=== PATIENT | female | born 1945 | race Caucasian/White ===

== ENCOUNTER 2017-11-02 09:04 | Emergency (ER) | payer OTHER, SELFPAY ==
[~2017-11-02] VITALS: Ht 162.6 cm; Wt 65.8 kg
[~2017-11-02 09:04] MED LIST: ADVANCED CALCI1 EACH; ASCO500; ASCO500 PO; ASPI81CH PO; ATOR80 PO; BIOTENE1000 ML PO; BIOTIN1 MG PO; Biotin1 MG; CALCIUM PO; CEPH500 PO; CHOL10002; CYAN500 PO; ENOX60I SC; Gas Relief80 MG; Glycotrol Caps1 EACH PO; HYDACE5 PO; HYDACE7.5 PO; LEVFLO500 PO; LOSA25; LOSA25 PO; METO25ER PO; MULVITMIND PO; MULVITMINF PO; OXYACE5T PO; PROC5 PO; PROZAC PO; SILSUL1TC TOP; SPIR25 PO; SUCR1 PO; TICA90TA; VIT D3 PO; WARF5 PO; [UNRECOGNIZED DRUG - OTHER] PO
[2017-11-02] MEDS ORDERED: Norco 5-325 Ta1 EACH PO (10:03)
== END 2017-11-02 10:16 | disposition home or self-care (01) ==
LOC: ER 09:04
DX: S83.92XA Sprain of unspecified site of left knee, initial encounter (principal); Z88.8 Allergy status to other drugs, medicaments and biological substances; Z79.899 Other long term (current) drug therapy; Z79.82 Long term (current) use of aspirin; Z87.891 Personal history of nicotine dependence; W19.XXXA Unspecified fall, initial encounter
CPT/HCPCS: 73564; 96372; 99283; J1885

== ENCOUNTER 2017-11-20 08:37 | Day surgery (SDC) | END 2017-11-20 22:43 | disposition home or self-care (01) ==

== ENCOUNTER 2018-03-09 10:09 | Emergency (ER) | payer OTHER ==
[~2018-03-09] VITALS: Ht 165.1 cm; Wt 62.6 kg
[~2018-03-09 10:09] MED LIST changes: +Norco 5-325 Ta1 EACH PO
[2018-03-09] MEDS ORDERED: CLOP75 PO (10:43)
[2018-03-09] MEDS ORDERED: ESCI10 PO (10:44)
[2018-03-09] MEDS ORDERED: TRAM50 PO (10:44)
[2018-03-09] MEDS ORDERED: Robaxin500 MG PO (12:03)
== END 2018-03-09 12:06 | disposition home or self-care (01) ==
LOC: ER 10:09
DX: S20.211A Contusion of right front wall of thorax, initial encounter (principal); Z88.6 Allergy status to analgesic agent; Z88.8 Allergy status to other drugs, medicaments and biological substances; Z79.899 Other long term (current) drug therapy; Z79.82 Long term (current) use of aspirin; Z87.891 Personal history of nicotine dependence; W22.8XXA Striking against or struck by other objects, initial encounter
CPT/HCPCS: 71101; 99283

== ENCOUNTER 2019-04-02 22:54 | Emergency (ER) | payer OTHER ==
[~2019-04-02] VITALS: Ht 162.6 cm; Wt 72.6 kg
[~2019-04-02 22:54] MED LIST changes: +CLOP75 PO; +ESCI10 PO; +Robaxin500 MG PO; +TRAM50 PO
== END 2019-04-03 00:23 | disposition home or self-care (01) ==
LOC: ER 22:54
DX: S51.012A Laceration without foreign body of left elbow, initial encounter (principal); S01.91XA Laceration without foreign body of unspecified part of head, initial encounter; Z23 Encounter for immunization; Z88.8 Allergy status to other drugs, medicaments and biological substances; Z79.82 Long term (current) use of aspirin; Z79.899 Other long term (current) drug therapy; Z87.891 Personal history of nicotine dependence; W19.XXXA Unspecified fall, initial encounter
CPT/HCPCS: 12002; 70450; 90471; 90714; 99284-25

== ENCOUNTER 2022-08-29 10:11 | Emergency (ER) | payer OTHER ==
[~2022-08-29] VITALS: Ht 162.6 cm; Wt 68.0 kg
[2022-08-29] MEDS ORDERED: ESCI10 PO (11:30)
[2022-08-29] MEDS ORDERED: MORP30 PO (12:55)
[2022-08-29] MEDS ORDERED: LIDO700A20 TOP (12:55)
[2022-08-29] MEDS ORDERED: Voltaren100 GM TOP (12:55)
== END 2022-08-29 13:07 | disposition home or self-care (01) ==
LOC: ER 10:11
DX: S80.02XA Contusion of left knee, initial encounter (principal); S20.212A Contusion of left front wall of thorax, initial encounter; S00.83XA Contusion of other part of head, initial encounter; S00.81XA Abrasion of other part of head, initial encounter; W01.0XXA Fall on same level from slipping, tripping and stumbling without subsequent striking against object, initial encounter; I10 Essential (primary) hypertension; Z87.891 Personal history of nicotine dependence; Z88.8 Allergy status to other drugs, medicaments and biological substances; Z79.899 Other long term (current) drug therapy; Z79.82 Long term (current) use of aspirin
CPT/HCPCS: 70450; 71101; 73562-LT; A9270

== ENCOUNTER → 2022-12-06 | Emergency (ER) | payer OTHER ==
[~2022-12-06] VITALS: Ht 162.6 cm; Wt 71.7 kg
[~2022-12-06] MED LIST changes: +LIDO700A20 TOP; +MORP30 PO; +Voltaren100 GM TOP
[2022-12-06 15:29] LABS: BASOPHILS ABSOLUTE AUTO 0.09 K/mm3 (0.00-0.23); BASOPHILS PERCENT AUTO 1 % (0-2); EOSINOPHILS ABSOLUTE AUTO 0.31 K/mm3 (0.00-0.68); EOSINOPHILS PERCENT AUTO 4 % (0-6); Hematocrit 35.9 % (33.0-51.0); Hemoglobin 11.6 g/dL (11.5-16.0); IMMATURE GRAN ABSOLUTE AUTO 0.03 K/mm3 (0.00-0.10); IMMATURE GRAN PERCENT AUTO 0 % (0-1); LYMPHOCYTES ABSOLUTE AUTO 1.87 K/mm3 (0.84-5.20); LYMPHOCYTES PERCENT AUTO 21 % (21-46); MONOCYTES ABSOLUTE AUTO 0.71 K/mm3 (0.16-1.47); MONOCYTES PERCENT AUTO 8 % (4-13); Mean Corpuscular HGB Conc 32.3 g/dL (31.5-36.5); Mean Corpuscular Volume 99 fL (80-100); Mean Platelet Volume 9.9 fL (9.1-12.4); NEUTROPHILS ABSOLUTE AUTO 5.96 K/mm3 (1.96-9.15); NEUTROPHILS PERCENT AUTO 67 % (41-73); Platelet Count 335 K/mm3 (150-400); RDW Coefficient Variation 15.1 % (11.7-14.2); RDW Standard Deviation 55.1 fL (35.1-46.3); Red Blood Cell Count 3.63 M/mm3 (3.80-5.20); White Blood Cell Count 8.97 K/mm3 (4.00-11.30)
[2022-12-06 15:35] LABS: Albumin, Blood 3.6 g/dL (3.4-5.0); Bilirubin, Total 0.4 mg/dL (0.1-1.0); Bun/Creatinine Ratio 17.7 (12.0-20.0); Calcium, Blood 9.4 mg/dL (8.5-10.1); Creatinine, Blood 1.13 mg/dL (0.40-1.00); Globulin, Blood 3.6 g/dL (2.2-4.0); Potassium, Blood 4.4 mmol/L (3.5-5.5); Total Protein, Blood 7.2 g/dL (6.4-8.2)
== END ==
LOC: ER 14:49
PROVIDERS: Emergency Medicine
DX: S82.002A Unspecified fracture of left patella, initial encounter for closed fracture (principal); R55 Syncope and collapse; S80.02XA Contusion of left knee, initial encounter; R19.7 Diarrhea, unspecified; M25.562 Pain in left knee; I25.2 Old myocardial infarction; Z95.5 Presence of coronary angioplasty implant and graft; I10 Essential (primary) hypertension; W19.XXXA Unspecified fall, initial encounter; Z87.891 Personal history of nicotine dependence
CPT/HCPCS: 71046; 72170; 73562-LT; 80053; 83880; 84484; 85025; 86850; 86900; 86901; A9270; J7030